=== PATIENT | female | born 1970 | race Caucasian/White ===

== ENCOUNTER → 2018-11-01 | Day surgery (SDC) | payer OTHER ==
[~2018-11-01] MED LIST: ATEN25TA PO; GLIP10TA13 PO; HYDROmorphone 2 MG/ML VIAL IV PRN; IV RINGERS,LACTATED 1000ML 1,000 ML IV SCH; LIDOCAINE 1% PF 2 ML VIAL. ID PRN; MORPHINE SULFATE 2 MG/ML VIAL. IV PRN; OMEP40CA5 PO; ONDANSETRON PF 4 MG/2 ML VIAL. IV PRN; PROCHLORPERAZINE 10 MG/2 ML VIAL. IV PRN; PROPOFOL 40 ML IV ONE; SERT100T PO; SITA1TAB11 PO; VERA240C2 PO; fentaNYL PF VIAL 100 MCG/2 ML VIAL IV PRN
[2018-11-01 07:59] VITALS: BP 121/85
--- NOTE | 2018-11-02 18:06 | PATHOLOGY ---
[facility] [place] Accession Number: [id number] . 01 Material submitted: . DUODENAL BIOPSY . 01 Clinical history: . Epigastric pain, change in bowel habits rule out celiac . 02 Diagnosis: Duodenal biopsy: - Mild nonspecific duodenitis. . (JPM:mml; 11/02/2018) [facility]/11/02/2018 . 02 Comment: Sections of the duodenal biopsy reveal multiple segments of duodenal and small intestine mucosa. There is congestion and mild nonspecific chronic inflammation with a few scattered admixed neutrophils. There is no villous shortening or intraepithelial lymphocytosis indicative of celiac sprue. . (JPM:mml; 11/02/2018) . 02 Electronically signed: . Milton Baker MD, Pathologist NPI- [id number] . 01 Gross description: . The specimen is received in formalin, labeled "Lavern, Suzi, duodenal BX" and consists of multiple fragments of soft gonzalez tissue measuring 1.5 x 0.6 x 0.3 cm in aggregate which are entirely submitted in A1. (SDY; 11/01/2018) SYU/SYU . 02 Pathologist provided ICD-10: K29.80 . 02 CPT . 122390 Specimen Comment: A courtesy copy of this report has been sent to Specimen Comment: [phone], . Specimen Comment: Report sent to / DR TURNER Performed at: 01 [facility] [address], [place] [id number] MD Red Beltran MD Phone: [phone] Performed at: 02 [facility] [address], [place] [id number] MD Milton Baker MD Phone: [phone]
== END | disposition home or self-care (01) ==
LOC: ENDOS 05:39
PROVIDERS: ATTEND Internal Medicine Gastroenterology
DX: K29.80 Duodenitis without bleeding (principal); K64.0 First degree hemorrhoids; K31.89 Other diseases of stomach and duodenum; I10 Essential (primary) hypertension; F41.9 Anxiety disorder, unspecified; K21.9 Gastro-esophageal reflux disease without esophagitis; F32.9 Major depressive disorder, single episode, unspecified; E11.9 Type 2 diabetes mellitus without complications; K31.84 Gastroparesis; G47.30 Sleep apnea, unspecified; Z88.8 Allergy status to other drugs, medicaments and biological substances; Z90.49 Acquired absence of other specified parts of digestive tract; Z85.3 Personal history of malignant neoplasm of breast; Z88.6 Allergy status to analgesic agent; Z85.828 Personal history of other malignant neoplasm of skin; Z82.49 Family history of ischemic heart disease and other diseases of the circulatory system; Z83.3 Family history of diabetes mellitus; Z72.89 Other problems related to lifestyle; Z79.899 Other long term (current) drug therapy; Z79.2 Long term (current) use of antibiotics; Z98.890 Other specified postprocedural states; Z79.84 Long term (current) use of oral hypoglycemic drugs
CPT/HCPCS: 43239; 45378; 88305; J2704